=== PATIENT | female | born 1990 | race African-American/Black ===

== ENCOUNTER 2017-09-18 11:39 | Observation (INO) ==
[2017-09-18] MEDS ORDERED: LACTATED RINGERS 500 ML IV ONE (16:15)
[2017-09-18] MEDS ORDERED: ONDANSETRON 4 MG/2 ML VIAL IV ONE (16:18)
[2017-09-18] MEDS ORDERED: MEPERIDINE 25 MG/1 ML VIAL IV ONE (16:18)
[2017-09-18] MEDS ORDERED: LACTATED RINGERS 1,000 ML IV ONE (16:29)
[2017-09-18 16:35] LABS: Apearance,Urine CLEAR (Clear); Bilirubin,Urine Negative (Negative); Blood, Urine Negative (Negative); Glucose,Urine (UA) Negative (Negative); Ketones,Urine 20 mg/dL (Negative); Nitrite,Urine Negative (Negative); Protein,Urine Negative; Squamous Epithelial Cell,Urine Occasional /HPF (0-10); Urine Color Straw (Yellow); Urine Specific Gravity 1.004 (1.001-1.035); Urine Urobilinogen < 2.0 EU/DL (0.2-1.0); WBC,Urine 20 /HPF (0-6)
[2017-09-18 17:05] LABS: Basophils % 0.2 % (0.0-0.8); Eosinophils % 0.3 % (0.00-10.9); Hematocrit 33.8 VOL% (35.7-47.0); Hemoglobin 11.6 GM/DL (12.0-16.0); Immature Granulocytes % 0.4 %; Immature Granulocytes Absolute 0.04 #; Lymphocytes # 2.5 10*3/uL (1.4-4.0); Mean Corpuscular HGB Conc 34.3 GM/DL (32-36); Mean Corpuscular Hemoglobin 31 PG (27-34); Mean Corpuscular Volume 88.9 FL (87-102); Mean Platelet Volume 9.4 FL (9.6-12.0); Monocytes # 0.5 10*3/uL (0.11-0.8); Monocytes % 4.9 % (1.7-12.7); Neutrophils # 6.2 10*3/uL (1.4-7.4); Neutrophils % 67.2 % (38.7-73.9); Platelet Count 197 T/CUMM (130-400); Red Cell Distribution Width 12.5 % (9.3-17.3); White Blood Count 9.2 T/CUMM (4-12)
[2017-09-18] MEDS ORDERED: PROMETHAZINE 25 MG/1 ML VIAL IM PRN (18:08)
[2017-09-18] MEDS ORDERED: LACTATED RINGERS 1,000 ML IV SCH (18:30)
[2017-09-18 18:34] LABS: Barbiturates Screen,Urine Negative (Negative); Benzodiazepines Screen,Urine Negative (Negative); Cannabinoid Screen,Urine Negative (Negative); Opiate Screen,Urine Negative (Negative); Phencyclidine Screen,Urine Negative (Negative)
[2017-09-18] MEDS: ACETAMINOPHEN/CODEINE 300-30 MG TABLET PO PRN (22:10)
[2017-09-19] MEDS: ACETAMINOPHEN/CODEINE 300-30 MG TABLET PO PRN ×2 (04:11→08:26)
[2017-09-19 07:10] VITALS: BP 94/49
== END 2017-09-19 13:55 | disposition home or self-care (01) ==
LOC: EDBD → EDUNIT# → N.ED 11:39 → N.EDINP 11:39 → N.LD 15:15 → N.OB 19:12
PROVIDERS: ADMIT Obstetrics & Gynecology; ATTEND Obstetrics & Gynecology